=== PATIENT | female | born 1980 | race Caucasian/White ===

== ENCOUNTER 2021-08-31 21:02 | Emergency (ER) | payer BC ==
[2021-08-31] MEDS ORDERED: Ondansetron 4 MG Tab.DIS PO ONE (21:31)
[2021-08-31] MEDS ORDERED: Diphtheria,Pertussis(Acell),Tetanus Vaccine 0.5 ML Syringe IM ONE (22:06)
== END 2021-08-31 22:23 | disposition home or self-care (01) ==
LOC: JD.ED 21:02
DX: S01.81XA Laceration without foreign body of other part of head, initial encounter (principal); S01.01XA Laceration without foreign body of scalp, initial encounter; Z23 Encounter for immunization; Z86.16 Personal history of COVID-19; W55.03XA Scratched by cat, initial encounter
CPT/HCPCS: 12013; 90471; 90715; 99283; A9270